=== PATIENT | female | born 1975 | race Hispanic/Latino ===

== ENCOUNTER 2020-07-16 12:16 | Inpatient (IN) | payer BC ==
[~2020-07-16] VITALS: Ht 162.6 cm; Wt 90.7 kg
[~2020-07-16 12:16] MED LIST: ASPI-1005 PO; ATOR40TA69 PO; CLOP75TA14 PO; DILT180C63 PO; FIORIT PO; LOSA25TA41 PO; MULT-1118 PO; PANT40TA55 PO; TRAZ150T79 PO; VITAMIN D PO; XIGDUO PO
[2020-07-16] MEDS ORDERED: DiphenhydrAMINE HCL 50 MG/ML VIAL ONE (12:45)
[2020-07-16] MEDS ORDERED: ACETAMINOPHEN 325 MG TAB ONE (13:03)
[2020-07-16 13:15] LABS: BASOPHILS % (AUTO) 0.3 % (0.0-5.0); EOSINOPHILS % (AUTO) 0.2 % (0.0-8.0); HEMATOCRIT 38.4 % (36-48); MEAN CORPUSCULAR HEMOGLOBIN 31.5 pg (27.0-33.0); MEAN CORPUSCULAR HGB CONC 33.6 g/dL (32.0-36.0); MEAN CORPUSCULAR VOLUME 93.7 fL (79-99); NEUTROPHILS % (AUTO) 77.9 % (40.0-77.0); PLATELET COUNT (AUTO) 393 K/uL (130-400); RED CELL DISTRIBUTION WIDTH 13.5 % (11.0-15.5)
[2020-07-16 13:18] LABS: CREATININE 0.7 mg/dL (0.5-1.5); POTASSIUM 3.6 mmol/L (3.5-5.1)
[2020-07-16] MEDS ORDERED: SODIUM CHLORIDE 0.9% 50 ML IV ONE (20:26)
[2020-07-16] MEDS ORDERED: CEFTRIAXONE SODIUM 2 GM VIAL ONE (20:26)
[2020-07-16] MEDS ORDERED: NITROGLYCERIN 0.4 MG SL TAB SL PRN ×2 (21:45)
[2020-07-16] MEDS ORDERED: TRAMADOL HCL 50 MG TABLET PO PRN (21:45)
[2020-07-16] MEDS ORDERED: ACETAMINOPHEN 325 MG TAB PO PRN ×2 (21:45)
[2020-07-16] MEDS ORDERED: GUAIFENESIN-DM 200/20 MG 10 ML PO PRN (21:45)
[2020-07-16] MEDS ORDERED: DiphenhydrAMINE HCL 50 MG/ML VIAL IV PRN (21:45)
[2020-07-16] MEDS: CEFTRIAXONE SODIUM 1 GM IV SCH (21:45)
[2020-07-16] MEDS ORDERED: MAG HYDROX/AL HYDROX/SIMETH ES 30 ML SUSP UDCUP PO PRN (21:45)
[2020-07-16] MEDS ORDERED: DIPHENHYDRAMINE HCL 25 MG CAPSULE PO PRN (21:45)
[2020-07-16] MEDS: LACTATED RINGERS 1000ML 1,000 ML IV SCH (21:45)
[2020-07-16] MEDS ORDERED: TRAZODONE HCL 100 MG TABLET PO PRN (21:45)
[2020-07-16] MEDS ORDERED: MORPHINE SULFATE 2 MG/ML 1ML SYG IV PRN ×2 (21:45→22:00)
[2020-07-16] MEDS ORDERED: LACTULOSE 20 GM/30 ML UDCUP PO PRN (21:45)
[2020-07-16] MEDS ORDERED: ONDANSETRON HCL 4 MG/2 ML VIAL IV PRN (21:45)
[2020-07-16] MEDS: ATORVASTATIN CALCIUM 40 MG TABLET PO SCH (22:00)
[2020-07-16 22:05] LABS: ALBUMIN 3.4 g/dL (3.5-5.0); BILIRUBIN,TOTAL 0.4 mg/dL (0.2-1.0); CRP QUANTITATIVE 115.4 mg/L (0.00-9.0); POTASSIUM 3.8 mmol/L (3.5-5.1); TOTAL PROTEIN, SERUM 8.4 g/dL (6.0-8.3); URIC ACID 2.9 mg/dL (2.6-7.2)
[2020-07-16 22:10] LABS: CREATININE 0.7 mg/dL (0.5-1.5)
[2020-07-16 23:58] VITALS: BP 163/93
[2020-07-17] MEDS ORDERED: BUTALB/ACETAMINOPHEN/CAFFEINE 1 EACH TABLET PO PRN (00:15)
[2020-07-17] MEDS ORDERED: ATOR40TA71 PO (00:34)
[2020-07-17] MEDS ORDERED: NIFE-40 PO (00:34)
[2020-07-17] MEDS ORDERED: LOSA50TA64 PO (00:34)
[2020-07-17] MEDS ORDERED: DAPA1TAB5 PO (00:34)
[2020-07-17] MEDS: LACTATED RINGERS 1000ML 1,000 ML IV SCH (01:29)
[2020-07-17 03:39] VITALS: BP_SYST 119; BP_SYST 150; BP_DIAS 78; BP_DIAS 91
[2020-07-17] MEDS ORDERED: TRAZODONE HCL 50 MG TAB PO PRN (03:45)
[2020-07-17 05:21] LABS: BASOPHILS % (AUTO) 0.2 % (0.0-5.0); EOSINOPHILS % (AUTO) 1.2 % (0.0-8.0); HEMATOCRIT 35.1 % (36-48); LYMPHOCYTES % (AUTO) 17.8 % (21.0-51.0); MEAN CORPUSCULAR HEMOGLOBIN 31.1 pg (27.0-33.0); MEAN CORPUSCULAR HGB CONC 33.6 g/dL (32.0-36.0); MEAN CORPUSCULAR VOLUME 92.4 fL (79-99); MONOCYTES % (AUTO) 7.1 % (3.0-13.0); NEUTROPHILS % (AUTO) 73.4 % (40.0-77.0); PLATELET COUNT (AUTO) 348 K/uL (130-400); RED CELL DISTRIBUTION WIDTH 13.6 % (11.0-15.5); WHITE BLOOD COUNT (AUTO) 12.6 K/uL (4.8-10.8)
[2020-07-17 05:37] LABS: BILIRUBIN,TOTAL 0.4 mg/dL (0.2-1.0); CREATININE 0.6 mg/dL (0.5-1.5); POTASSIUM 3.6 mmol/L (3.5-5.1); TOTAL PROTEIN, SERUM 7.5 g/dL (6.0-8.3)
[2020-07-17 07:50] VITALS: BP 158/85
[2020-07-17] MEDS ORDERED: DILTIAZEM HCL 180 MG CAP.SR.24H PO SCH (09:00)
[2020-07-17] MEDS ORDERED: FAMOTIDINE/PF 20 MG/2 ML VIAL IV SCH (09:00)
[2020-07-17] MEDS ORDERED: LOSARTAN 25 MG TABLET PO SCH (09:00)
[2020-07-17] MEDS: XIGDUO PO SCH (09:00)
[2020-07-17] MEDS ORDERED: NIFEDIPINE ER 30 MG TAB PO SCH (09:00)
[2020-07-17] MEDS ORDERED: ASPIRIN 81MG TAB.CHEW PO SCH (09:00)
[2020-07-17] MEDS: MULTIVITAMIN WITH MINERALS TABLET PO SCH (09:00)
[2020-07-17] MEDS ORDERED: LOSARTAN 50 MG TABLET PO SCH (09:00)
[2020-07-17] MEDS: VITAMIN D 5000 PO SCH (09:00)
[2020-07-17] MEDS ORDERED: CLOPIDOGREL BISULFATE 75 MG TAB PO SCH (09:00)
[2020-07-17] MEDS: PANTOPRAZOLE SODIUM 40 MG TABLET.DR PO SCH (10:38)
[2020-07-17] MEDS: LOSARTAN 50 MG TABLET PO SCH (10:38)
[2020-07-17] MEDS: FAMOTIDINE 20MG TAB 20 MG TAB PO SCH ×2 (10:38→20:07)
[2020-07-17] MEDS: MULTIVITAMIN TABLET PO SCH (10:38)
[2020-07-17] MEDS: NIFEDIPINE ER 30 MG TAB PO SCH (10:38)
[2020-07-17] MEDS: ASPIRIN 81MG TAB.CHEW PO SCH (10:38)
[2020-07-17] MEDS: ENOXAPARIN SODIUM 40 MG/0.4 ML SYRINGE SQ SCH (10:39)
[2020-07-17] MEDS ORDERED: GADODIAMIDE 10 MMOL/20 ML VIAL IV ONE (11:23)
[2020-07-17 11:40] VITALS: BP 155/86
[2020-07-17 17:03] VITALS: BP 160/86
[2020-07-17 20:00] VITALS: BP 140/86
[2020-07-17] MEDS: ATORVASTATIN CALCIUM 40 MG TABLET PO SCH (20:07)
[2020-07-17] MEDS ORDERED: ATORVASTATIN CALCIUM 40 MG TABLET PO SCH (21:00)
[2020-07-17] MEDS: CEFTRIAXONE SODIUM 1 GM IV SCH (22:24)
[2020-07-17 23:45] VITALS: BP 139/78
[2020-07-18 03:38] VITALS: BP 140/83
[2020-07-18 05:45] LABS: BASOPHILS % (AUTO) 0.4 % (0.0-5.0); EOSINOPHILS % (AUTO) 2.5 % (0.0-8.0); HEMATOCRIT 36.2 % (36-48); MEAN CORPUSCULAR HEMOGLOBIN 30.4 pg (27.0-33.0); MEAN CORPUSCULAR VOLUME 94.8 fL (79-99); NEUTROPHILS % (AUTO) 62.8 % (40.0-77.0); PLATELET COUNT (AUTO) 388 K/uL (130-400); RED BLOOD CELL COUNT(AUTO) 3.82 MIL/uL (4.00-5.50); RED CELL DISTRIBUTION WIDTH 13.4 % (11.0-15.5); WHITE BLOOD COUNT (AUTO) 9.2 K/uL (4.8-10.8)
[2020-07-18 06:09] LABS: ALBUMIN 2.9 g/dL (3.5-5.0); BILIRUBIN,TOTAL 0.3 mg/dL (0.2-1.0); CREATININE 0.7 mg/dL (0.5-1.5); POTASSIUM 3.4 mmol/L (3.5-5.1); TOTAL PROTEIN, SERUM 7.6 g/dL (6.0-8.3)
[2020-07-18] MEDS: VITAMIN D 5000 PO SCH (07:18)
[2020-07-18] MEDS: XIGDUO PO SCH (07:18)
[2020-07-18 08:22] VITALS: BP 41/83
[2020-07-18] MEDS: MULTIVITAMIN WITH MINERALS TABLET PO SCH (09:00)
[2020-07-18] MEDS: FAMOTIDINE 20MG TAB 20 MG TAB PO SCH ×2 (09:00→21:38)
[2020-07-18] MEDS: ASPIRIN 81MG TAB.CHEW PO SCH (09:00)
[2020-07-18] MEDS: ENOXAPARIN SODIUM 40 MG/0.4 ML SYRINGE SQ SCH (09:00)
[2020-07-18] MEDS: PANTOPRAZOLE SODIUM 40 MG TABLET.DR PO SCH (09:00)
[2020-07-18] MEDS: MULTIVITAMIN TABLET PO SCH (09:00)
[2020-07-18] MEDS: LOSARTAN 50 MG TABLET PO SCH (09:54)
[2020-07-18] MEDS: NIFEDIPINE ER 30 MG TAB PO SCH (09:54)
[2020-07-18 13:50] VITALS: BP 146/96
[2020-07-18] MEDS ORDERED: VANCOMYCIN PROTOCOL PER PHARMACY IV SCH (14:30)
[2020-07-18] MEDS ORDERED: POTASSIUM CHLORIDE 20 MEQ ERTAB PO SCH (15:00)
[2020-07-18] MEDS ORDERED: COMPOUND IV REFRIGERATED 1 EACH IVSOLN MISC PRN (15:00)
[2020-07-18 16:39] VITALS: BP 134/68
[2020-07-18] MEDS: VANCOMYCIN 1.25 GM in SODIUM CHLORIDE 0.9% 250 ML IV SCH (16:50)
[2020-07-18] MEDS ORDERED: KETOROLAC TROMETHAMINE 15MG/ML IV SCH (18:30)
[2020-07-18] MEDS ORDERED: KETOROLAC TROMETHAMINE 15MG/ML ONE (18:32)
[2020-07-18 20:08] VITALS: BP 139/76
[2020-07-18] MEDS: CEFTRIAXONE SODIUM 1 GM IV SCH (21:39)
[2020-07-18] MEDS: ATORVASTATIN CALCIUM 40 MG TABLET PO SCH (21:39)
[2020-07-19 00:08] VITALS: BP 134/79
[2020-07-19 04:08] VITALS: BP 130/79
[2020-07-19 05:12] LABS: BASOPHILS % (AUTO) 0.4 % (0.0-5.0); EOSINOPHILS % (AUTO) 4.1 % (0.0-8.0); HEMATOCRIT 33.6 % (36-48); LYMPHOCYTES % (AUTO) 26.4 % (21.0-51.0); MEAN CORPUSCULAR HGB CONC 33.3 g/dL (32.0-36.0); MEAN CORPUSCULAR VOLUME 93.1 fL (79-99); MONOCYTES % (AUTO) 7.9 % (3.0-13.0); NEUTROPHILS % (AUTO) 60.9 % (40.0-77.0); PLATELET COUNT (AUTO) 367 K/uL (130-400); RED BLOOD CELL COUNT(AUTO) 3.61 MIL/uL (4.00-5.50); RED CELL DISTRIBUTION WIDTH 13.2 % (11.0-15.5)
[2020-07-19 05:24] LABS: ALBUMIN 2.5 g/dL (3.5-5.0); BILIRUBIN,TOTAL 0.2 mg/dL (0.2-1.0); CREATININE 0.7 mg/dL (0.5-1.5); CRP QUANTITATIVE 32.1 mg/L (0.00-9.0); POTASSIUM 3.7 mmol/L (3.5-5.1); TOTAL PROTEIN, SERUM 6.9 g/dL (6.0-8.3)
[2020-07-19] MEDS: VANCOMYCIN 1.25 GM in SODIUM CHLORIDE 0.9% 250 ML IV SCH ×2 (05:24→20:57)
[2020-07-19 08:46] VITALS: BP 145/81
[2020-07-19] MEDS: MULTIVITAMIN TABLET PO SCH (09:00)
[2020-07-19] MEDS: XIGDUO PO SCH (09:00)
[2020-07-19] MEDS: VITAMIN D 5000 PO SCH (09:00)
[2020-07-19] MEDS: ENOXAPARIN SODIUM 40 MG/0.4 ML SYRINGE SQ SCH (09:00)
[2020-07-19] MEDS: MULTIVITAMIN WITH MINERALS TABLET PO SCH (12:05)
[2020-07-19] MEDS: NIFEDIPINE ER 30 MG TAB PO SCH (12:05)
[2020-07-19] MEDS: PANTOPRAZOLE SODIUM 40 MG TABLET.DR PO SCH (12:05)
[2020-07-19] MEDS: FAMOTIDINE 20MG TAB 20 MG TAB PO SCH ×2 (12:05→20:56)
[2020-07-19] MEDS: ASPIRIN 81MG TAB.CHEW PO SCH (12:06)
[2020-07-19] MEDS: LOSARTAN 50 MG TABLET PO SCH (12:06)
[2020-07-19 13:24] VITALS: BP 168/100
[2020-07-19 17:10] VITALS: BP 133/84
[2020-07-19 20:00] VITALS: BP 148/80
[2020-07-19] MEDS: CEFTRIAXONE SODIUM 1 GM IV SCH (20:56)
[2020-07-19] MEDS: ATORVASTATIN CALCIUM 40 MG TABLET PO SCH (20:56)
[2020-07-20] VITALS: BP 135/76
[2020-07-20 04:00] VITALS: BP 144/67
[2020-07-20 07:28] LABS: BASOPHILS % (AUTO) 0.5 % (0.0-5.0); EOSINOPHILS % (AUTO) 3.7 % (0.0-8.0); HEMATOCRIT 35.3 % (36-48); LYMPHOCYTES % (AUTO) 25.4 % (21.0-51.0); MEAN CORPUSCULAR HEMOGLOBIN 30.8 pg (27.0-33.0); MEAN CORPUSCULAR HGB CONC 32.6 g/dL (32.0-36.0); MEAN CORPUSCULAR VOLUME 94.6 fL (79-99); MONOCYTES % (AUTO) 5.5 % (3.0-13.0); NEUTROPHILS % (AUTO) 64.7 % (40.0-77.0); PLATELET COUNT (AUTO) 371 K/uL (130-400); RED BLOOD CELL COUNT(AUTO) 3.73 MIL/uL (4.00-5.50); RED CELL DISTRIBUTION WIDTH 13.2 % (11.0-15.5); WHITE BLOOD COUNT (AUTO) 8.4 K/uL (4.8-10.8)
[2020-07-20 07:34] VITALS: BP 147/78
[2020-07-20 07:41] LABS: HEMOGLOBIN A1C 7.2 % (4.0-6.0)
[2020-07-20 07:56] LABS: ALBUMIN 2.8 g/dL (3.5-5.0); BILIRUBIN,TOTAL 0.2 mg/dL (0.2-1.0); CREATININE 0.7 mg/dL (0.5-1.5); CRP QUANTITATIVE 10.1 mg/L (0.00-9.0); TOTAL PROTEIN, SERUM 7.1 g/dL (6.0-8.3)
[2020-07-20 08:34] LABS: ERYTHROCYTE SEDIMENTATION RATE 85 MM/HR (0-20)
[2020-07-20] MEDS: XIGDUO PO SCH (09:00)
[2020-07-20] MEDS: VITAMIN D 5000 PO SCH (09:00)
[2020-07-20] MEDS: ENOXAPARIN SODIUM 40 MG/0.4 ML SYRINGE SQ SCH (09:00)
[2020-07-20] MEDS: VANCOMYCIN 1.5 GM in SODIUM CHLORIDE 0.9% 250 ML IV SCH ×2 (10:32→21:06)
[2020-07-20] MEDS: PANTOPRAZOLE SODIUM 40 MG TABLET.DR PO SCH (10:34)
[2020-07-20] MEDS: ASPIRIN 81MG TAB.CHEW PO SCH (10:34)
[2020-07-20] MEDS: MULTIVITAMIN TABLET PO SCH (10:34)
[2020-07-20] MEDS: MULTIVITAMIN WITH MINERALS TABLET PO SCH (10:34)
[2020-07-20] MEDS: FAMOTIDINE 20MG TAB 20 MG TAB PO SCH ×2 (10:35→21:05)
[2020-07-20] MEDS: LOSARTAN 50 MG TABLET PO SCH (10:35)
[2020-07-20] MEDS: NIFEDIPINE ER 30 MG TAB PO SCH (10:35)
[2020-07-20 11:46] VITALS: BP 147/78
[2020-07-20 14:42] LABS: INR 1.03 (0.85-1.15); PROTHROMBIN TIME 11.2 SEC (9.6-11.6)
[2020-07-20 16:11] LABS: CHLAMYDIA DNA N.A.AMPLIFY Negative (Negative)
[2020-07-20 16:37] VITALS: BP 144/82
[2020-07-20 19:57] VITALS: BP 160/90
[2020-07-20] MEDS: CEFTRIAXONE SODIUM 1 GM IV SCH (21:05)
[2020-07-20] MEDS: ATORVASTATIN CALCIUM 40 MG TABLET PO SCH (21:05)
[2020-07-21 00:39] VITALS: BP 137/77
[2020-07-21 04:20] VITALS: BP 134/79
[2020-07-21 08:00] VITALS: BP 141/90
[2020-07-21] MEDS: ENOXAPARIN SODIUM 40 MG/0.4 ML SYRINGE SQ SCH (09:00)
[2020-07-21] MEDS: MULTIVITAMIN WITH MINERALS TABLET PO SCH (09:00)
[2020-07-21] MEDS: XIGDUO PO SCH (09:00)
[2020-07-21] MEDS: VITAMIN D 5000 PO SCH (09:00)
[2020-07-21] MEDS: PANTOPRAZOLE SODIUM 40 MG TABLET.DR PO SCH (10:23)
[2020-07-21] MEDS: ASPIRIN 81MG TAB.CHEW PO SCH (10:23)
[2020-07-21] MEDS: NIFEDIPINE ER 30 MG TAB PO SCH (10:23)
[2020-07-21] MEDS: FAMOTIDINE 20MG TAB 20 MG TAB PO SCH ×2 (10:23→20:10)
[2020-07-21] MEDS: MULTIVITAMIN TABLET PO SCH (10:23)
[2020-07-21] MEDS: LOSARTAN 50 MG TABLET PO SCH (10:24)
[2020-07-21] MEDS: VANCOMYCIN 1.5 GM in SODIUM CHLORIDE 0.9% 250 ML IV SCH ×2 (10:26→20:11)
[2020-07-21 11:00] VITALS: BP 141/84
[2020-07-21 16:00] VITALS: BP 143/75
[2020-07-21 19:59] VITALS: BP 147/76
[2020-07-21] MEDS: ATORVASTATIN CALCIUM 40 MG TABLET PO SCH (20:09)
[2020-07-21] MEDS: CEFTRIAXONE SODIUM 1 GM IV SCH (20:10)
[2020-07-22] VITALS (7 sets, daily range): BP systolic 127–165; BP diastolic 72–90
[2020-07-22 05:38] LABS: HEMATOCRIT 35.8 % (36-48); MEAN CORPUSCULAR HEMOGLOBIN 30.6 pg (27.0-33.0); MEAN CORPUSCULAR HGB CONC 32.1 g/dL (32.0-36.0); MEAN CORPUSCULAR VOLUME 95.2 fL (79-99); RED BLOOD CELL COUNT(AUTO) 3.76 MIL/uL (4.00-5.50)
[2020-07-22 05:53] LABS: ALBUMIN 2.9 g/dL (3.5-5.0); BILIRUBIN,TOTAL 0.2 mg/dL (0.2-1.0); CREATININE 0.7 mg/dL (0.5-1.5); CRP QUANTITATIVE 7.2 mg/L (0.00-9.0); POTASSIUM 3.8 mmol/L (3.5-5.1); TOTAL PROTEIN, SERUM 7.3 g/dL (6.0-8.3)
[2020-07-22] MEDS: VITAMIN D 5000 PO SCH (09:00)
[2020-07-22] MEDS: ENOXAPARIN SODIUM 40 MG/0.4 ML SYRINGE SQ SCH (09:00)
[2020-07-22] MEDS: XIGDUO PO SCH (09:00)
[2020-07-22] MEDS: ASPIRIN 81MG TAB.CHEW PO SCH (09:28)
[2020-07-22] MEDS: FAMOTIDINE 20MG TAB 20 MG TAB PO SCH ×2 (09:29→20:09)
[2020-07-22] MEDS: PANTOPRAZOLE SODIUM 40 MG TABLET.DR PO SCH (09:29)
[2020-07-22] MEDS: NIFEDIPINE ER 30 MG TAB PO SCH (09:29)
[2020-07-22] MEDS: MULTIVITAMIN WITH MINERALS TABLET PO SCH (09:29)
[2020-07-22] MEDS: MULTIVITAMIN TABLET PO SCH (09:30)
[2020-07-22] MEDS: LOSARTAN 50 MG TABLET PO SCH (09:30)
[2020-07-22] MEDS: VANCOMYCIN 1.5 GM in SODIUM CHLORIDE 0.9% 250 ML IV SCH ×2 (09:36→19:30)
[2020-07-22] MEDS: VANCOMYCIN 1.75 GM in SODIUM CHLORIDE 0.9% 250 ML IV SCH (20:09)
[2020-07-22] MEDS: ATORVASTATIN CALCIUM 40 MG TABLET PO SCH (20:09)
[2020-07-22] MEDS: CEFTRIAXONE SODIUM 1 GM IV SCH (20:10)
[2020-07-23 03:33] VITALS: BP 141/78
[2020-07-23 06:43] LABS: BASOPHILS % (AUTO) 0.4 % (0.0-5.0); EOSINOPHILS % (AUTO) 2.6 % (0.0-8.0); HEMATOCRIT 34.7 % (36-48); LYMPHOCYTES % (AUTO) 18.4 % (21.0-51.0); MEAN CORPUSCULAR HEMOGLOBIN 31.3 pg (27.0-33.0); MEAN CORPUSCULAR HGB CONC 33.7 g/dL (32.0-36.0); MEAN CORPUSCULAR VOLUME 92.8 fL (79-99); MONOCYTES % (AUTO) 5.5 % (3.0-13.0); NEUTROPHILS % (AUTO) 72.8 % (40.0-77.0); PLATELET COUNT (AUTO) 376 K/uL (130-400); RED BLOOD CELL COUNT(AUTO) 3.74 MIL/uL (4.00-5.50); RED CELL DISTRIBUTION WIDTH 13.1 % (11.0-15.5); WHITE BLOOD COUNT (AUTO) 9.9 K/uL (4.8-10.8)
[2020-07-23 06:54] LABS: CREATININE 0.7 mg/dL (0.5-1.5); POTASSIUM 3.9 mmol/L (3.5-5.1)
[2020-07-23 08:00] VITALS: BP 146/82
[2020-07-23] MEDS: LOSARTAN 50 MG TABLET PO SCH (08:45)
[2020-07-23] MEDS: MULTIVITAMIN WITH MINERALS TABLET PO SCH (08:45)
[2020-07-23] MEDS: PANTOPRAZOLE SODIUM 40 MG TABLET.DR PO SCH (08:45)
[2020-07-23] MEDS: FAMOTIDINE 20MG TAB 20 MG TAB PO SCH (08:45)
[2020-07-23] MEDS: NIFEDIPINE ER 30 MG TAB PO SCH (08:45)
[2020-07-23] MEDS: ASPIRIN 81MG TAB.CHEW PO SCH (08:45)
[2020-07-23] MEDS: MULTIVITAMIN TABLET PO SCH (08:45)
[2020-07-23] MEDS: ENOXAPARIN SODIUM 40 MG/0.4 ML SYRINGE SQ SCH (09:00)
[2020-07-23] MEDS: VITAMIN D 5000 PO SCH (09:00)
[2020-07-23] MEDS: XIGDUO PO SCH (09:00)
[2020-07-23] MEDS: VANCOMYCIN 1.75 GM in SODIUM CHLORIDE 0.9% 250 ML IV SCH (10:30)
[2020-07-23 12:00] VITALS: BP 147/85
== END 2020-07-23 15:50 | disposition home or self-care (01) | DRG 872 ==
LOC: EDH 12:16 → EDHIP 21:32 → 3BH 23:24 → UNDODISIN 07-23 15:50
PROVIDERS: ADMIT Family Medicine; ATTEND Family Medicine
PROC: 0R9 Upper Joints, Drainage (ICD-10-PCS; principal; 2020-07-20)
DX: A41.9 Sepsis, unspecified organism (principal); M00.9 Pyogenic arthritis, unspecified; L02.414 Cutaneous abscess of left upper limb; M86.8X1 Other osteomyelitis, shoulder; I10 Essential (primary) hypertension; E78.5 Hyperlipidemia, unspecified; E66.9 Obesity, unspecified; G43.909 Migraine, unspecified, not intractable, without status migrainosus; I25.10 Atherosclerotic heart disease of native coronary artery without angina pectoris; M19.012 Primary osteoarthritis, left shoulder; M60.9 Myositis, unspecified; E11.69 Type 2 diabetes mellitus with other specified complication; E87.6 Hypokalemia; Z68.34 Body mass index [BMI] 34.0-34.9, adult; I25.2 Old myocardial infarction; Z83.3 Family history of diabetes mellitus; Z88.5 Allergy status to narcotic agent
CPT/HCPCS: 10060; 36415; 71045; 73030; 73223; 80048; 80053; 80202; 82948; 83036; 84145; 84484; 84550; 85025; 85027; 85610; 85651; 86140; 87040; 87070; 87076; 87486; 87797; 93005; A9579; G0378; J0696; J1200; J1650; J1885; J3370; J7050; J7120

== ENCOUNTER → 2021-07-25 | Outpatient (CLI) | payer BC ==
[~2021-07-25] MED LIST changes: +ATOR40TA71 PO; -CLOP75TA14 PO; +DAPA1TAB5 PO; -DILT180C63 PO; -LOSA25TA41 PO; +LOSA50TA64 PO; +NIFE-40 PO
== END | disposition home or self-care (01) ==
LOC: SHCH 13:36
PROVIDERS: ATTEND Internal Medicine Cardiovascular Disease
DX: G45.1 Carotid artery syndrome (hemispheric) (principal); I11.9 Hypertensive heart disease without heart failure; I25.2 Old myocardial infarction; E11.9 Type 2 diabetes mellitus without complications; E78.5 Hyperlipidemia, unspecified; E66.9 Obesity, unspecified
CPT/HCPCS: 93306; 93880

== ENCOUNTER → 2024-02-23 | Outpatient (CLI) | payer OTHER ==
--- NOTE | 2024-02-23 13:52 | HMCIMG ---
US THYROID/NECK HISTORY: No additional history given. COMPARISON: None TECHNIQUE: Thyroid ultrasound study was performed. FINDINGS: Right thyroid lobe measures 3.6 x 1.4 x 1.1 cm. Left thyroid lobe measures 3.7 x 1.2 x 1.1 cm. Thyroid gland is heterogeneous. There are left thyroid cysts with the largest measuring 7 x 3 mm. IMPRESSION: 1. No discrete thyroid nodule is seen. Left thyroid cysts.
== END | disposition home or self-care (01) ==
LOC: RAH 13:04
PROVIDERS: ATTEND Family Medicine
DX: E04.1 Nontoxic single thyroid nodule (principal); R94.5 Abnormal results of liver function studies
CPT/HCPCS: 76536